=== PATIENT | male | born 1975 | race Caucasian/White ===

== ENCOUNTER 2024-06-13 22:23 | Emergency (ER) | payer OTHER, SELFPAY ==
[2024-06-13 22:25] VITALS: BP 152/107
[2024-06-14] VITALS: BP 123/74
--- NOTE | 2024-06-14 03:35 | ED.GENMED ---
History of Present Illness
General
Chief Complaint: Skin Problem
Source: patient
Exam Limitations: none
Time Seen by Provider: 06/14/24 00:53
Nursing documentation reviewed up to this point in time: agreed with
History of Present Illness
History of Present Illness:
48-year-old male with history as documented presents to the ER for evaluation of red spots on the legs. Patient reports that about 5 days ago he noticed a tender red bump on the right ankle/ferris. Since then he has also developed a similar bump on
the left anterior ferris. Areas are occasionally pruritic they are tender to the touch and slightly raised. He denies any trauma, denies any bug bite. Denies any new skin products or irritants. He denies any lesions on the rest of his body. He
has noticed some slight localized edema around the ankles as well which is new. He has not had any fevers or chills. He has not had any arthralgias or myalgias. He has not had any respiratory symptoms, GI symptoms. He denies similar symptoms in
the past.
Past History
Past History
ED Past Medical History: Asthma
Social History
Personal:
Review of Systems
Review of Systems
All Other Systems: ROS reviewed and negative except as documented in HPI and ROS
Constitutional: Denies fever or chills
Respiratory: Denies cough or trouble breathing
Cardiac: Denies chest pain
ABD/GI: Denies abdominal pain
: Denies flank pain
Musculoskeletal: Reports edema
Skin: Reports rash
Neurological: Denies dizzy or headache
Phy Exam
Physical Exam
Physical Exam:
General: Awake, alert, oriented x3; no acute distress
Head: Normocephalic, atraumatic
Eyes: Conjunctiva normal, sclera anicteric
Throat: Airway intact, handling secretions
Neck: Trachea midline, supple without meningismus
Lungs: Clear to auscultation bilaterally, no wheezing, rales, rhonchi
Heart: Regular rate and rhythm, no murmurs, gallops, or rubs
Neuro: No gross deficits
Skin: Patient has two circular red to purple raised nodules�one on the right lateral aspect of the lower ferris, one on the left midline anterior lower ferris; they are tender to the touch, no pustule or ulceration or erosion of the skin, no warmth, no
rim of induration or fluctuance/crepitus; no other lesions noted on skin examination
Extremities: Trace edema around the ankles bilaterally; extremities are warm and well-perfused
Scores
Heart Failure Risk
Heart Failure Risk Score: Not Applicable
Heart Score for Chest Pain Patients
STEMI patient?: Not applicable
Withdrawal Assessment of Alcohol
Withdrawal Assessment Completed?: Not applicable
Course
Orders/Labs/Results
Orders:
Orders
06/14/24 01:57
CR Chest - 2 Views Urgent
Comment:
Reason For Exam: erythema nodosum
06/14/24 02:00
Anti Streptolysin Urgent
CRP [C-Reactive Protein] Urgent
Complete Blood Count/With Diff Urgent
Comprehensive Metabolic Panel Urgent
ESR [Erythrocyte Sed Rate] Urgent
Monotest Urgent
Abnormal Lab Results
06/14/24
02:00
Chloride 108 H mmol/L
(98-107)
Glucose 110 H mg/dl
(70-99)
06/14/24 02:00
Vital Signs
Initial and Last Documented VS:
Initial Vital Signs
Temp Pulse Resp BP Pulse Ox
36.6 C 105 19 152/107 98
06/13/24 22:25 06/13/24 22:25 06/13/24 22:25 06/13/24 22:25 06/13/24 22:25
Last Documented Vital Signs
Temp Pulse Resp BP Pulse Ox
36.6 C 78 18 123/74 98
06/13/24 22:25 06/14/24 00:00 06/14/24 00:00 06/14/24 00:00 06/14/24 00:00
MDM/Problems Addressed
Differential Diagnosis Includes:
Cellulitis/folliculitis, erythema nodosum, irritant/contact dermatitis, hives/urticaria
MDM/Problems Addressed:
48-year-old male presents to the emergency room for evaluation of rash/red spots as described above. No systemic symptoms, he has two small well-circumscribed nodules one on each leg which are tender to the touch. No pustule to suggest
folliculitis, no ulceration of the skin. There is no central clearing to suggest erythema migrans and he has symptoms on each leg. Seems most consistent with erythema nodosum. Will check basic labs, chest x-ray, inflammatory markers. Reassess
after the above.
Chest x-ray reviewed by me no acute pathology. Labs reviewed and no clinically significant abnormalities�CBC and CMP, inflammatory markers unremarkable. Plan to trial NSAIDs, steroid and have patient follow-up with his primary physician. He feels
comfortable with this plan. All questions answered.
*Radiology
Radiology exam reviewed: preliminary read by ED provider
*Pulse Oximetry
Patient hypoxic: no
*Critical Care Note
Total Time (30-74mins, 75-104mins- exclusive of procedures): Not Applicable
Data Reviewed
Source: patient
ED Attending Note
-
Portions of this chart may have been created with voice recognition software.� Occasional wrong word or��sound alike� substitutions may have occurred due to the inherent limitations of voice recognition software.
Discharge Plan
Departure
Patient Disposition: Home (Routine Discharge)
Date of Disposition: 06/14/24
Time of Disposition: 03:44
Patient with high blood pressure during this ER visit?: Yes
Discharge Problem:
Erythema nodosum
Instructions: Erythema nodosum
Prescriptions:
New
prednisone 10 mg Tablet
See Rx Instructions .ROUTE .COMPLEX Qty: 30 0RF
Rx Instructions:
Take By Mouth:
40 mg daily x3 days, 30 mg daily x3 days,
20 mg daily x3 days, 10 mg daily x3 days.
ibuprofen 400 mg tablet
400 mg PO Q6H PRN (Reason: Pain) Qty: 30 0RF
No Action
sulfamethoxazole-trimethoprim 800 MG/160 MG tablet
1 tab PO BID Qty: 14 0RF
Referrals:
Jairo Mccormick MD [Family Provider] - Follow up in 2-3 days
Activity Restrictions/Additional Instructions:
Thank you for visiting the Emergency Department at [facility].
1. Please schedule a follow up appointment as directed. Call first thing tomorrow morning to make an appointment.
2. If indicated, please take your medications as instructed and indicated on discharge paperwork.
3. If any of your symptoms do not improve, or persist, or become more severe within 6-12 hours, please return to the emergency department for further care.
4. Please return to the emergency department if you develop a headache, neck pain/stiffness, fever greater than 100.4F, chest pain, shortness of breath, persistent nausea, vomiting, slurred speech, difficulty walking, numbness/tingling, weakness,
signs of infection or any other symptoms that are worrisome to you.
Please call [phone] if you have any questions.
Interventions
Interventions:
*Risk Screen - Suicide Last Done: 06/13/24 22:25
*General Assessment Last Done: 06/14/24 01:15
*Neglect/Abuse Screening Last Done: 06/13/24 22:25
*ED COVID-19 Vaccine History Last Done: 06/14/24 01:15
ED-Skin Assessment Last Done: 06/13/24 23:50
Discharge Date and Time
Print Language: URDU
--- NOTE | 2024-06-14 03:39 | DOWNTIME ---
There was a [facility] Client Adolescent Counselor Downtime on 06/14/2024 from 0200 to 06/14/2024 at 0325 . Downtime documentation of patient's care, including medication administrations, has been reconciled in the electronic record per guidelines. Refer to the
patient's paper chart under the miscellaneous tab to see printed paper medication records and downtime forms.
[2024-06-14 03:41] LABS: ALT (SGPT) 30 U/L (0-50); AST (SGOT) 26 U/L (17-59); Albumin 4.5 g/dl (3.5-5.0); Alkaline Phosphatase 62 U/L (38-126); Blood Urea Nitrogen 19 mg/dl (9-20); Calcium 9.4 mg/dl (8.4-10.2); Carbon Dioxide 22 mmol/L (22-30); Chloride 108 mmol/L (98-107); Glucose 110 mg/dl (70-99); Sodium 142 mmol/L (135-145); Total Bilirubin 0.8 mg/dl (0.2-1.3); Total Protein 7.4 g/dl (6.3-8.2); eGFR > 60.00
[2024-06-14 03:46] LABS: % Eosinophils 6.2 % (0-6); % Immature Granulocytes 0.2 % (0-0.5); % Lymphocytes 31.4 % (20.5-51.1); % Neutrophils 50.2 % (42.2-75.2); Absolute Basophils 0.1 10^3/uL (0-0.2); Absolute Eosinophils 0.4 10^3/uL (0-0.7); Absolute Monocytes 0.7 10^3/uL (0.1-0.6); Absolute Neutrophils 3.2 10^3/uL (1.4-6.5); Erythrocyte Sed Rate 12 mm/hour (0-20); Hematocrit 40.8 % (39.0-52.0); Hemoglobin 14.3 g/dL (13.0-18.0); Mean Corpuscular Hgb 29.9 pg (27.0-31.0); Mean Corpuscular Volume 85.2 fL (80.0-94.0); Mean Platelet Volume 8.3 fL (7.4-10.4); Nucleated Red Blood Cells % 0 % (-); Platelet Count 244 10^3/uL (130-400); Red Blood Cell Count 4.79 10^6/uL (4.70-6.10); Red Cell Dist. Width 12.6 % (11.5-14.5); White Blood Cell Count 6.3 10^3/uL (4.8-10.8)
[2024-06-14 03:58] VITALS: BP 121/68
[2024-06-14 04:10] LABS: Monotest Negative (Negative)
[2024-06-14 14:03] LABS: Anti Streptolysin Negative (Negative)
== END 2024-06-14 04:00 | disposition home or self-care (01) ==
LOC: EMR 22:23
PROVIDERS: EMERGENCY PHYSICIAN Emergency Medicine; FAMILY PHYSICIAN Internal Medicine
DX: L52 Erythema nodosum (principal); R22.32 Localized swelling, mass and lump, left upper limb; J45.909 Unspecified asthma, uncomplicated
CPT/HCPCS: 99283; 71046; 80053; 85025; 85652; 86063; 86140; 86308

== ENCOUNTER 2024-06-16 15:17 | Emergency (ER) | payer OTHER, SELFPAY ==
[2024-06-16 15:21] VITALS: BP 152/98
[2024-06-16 15:45] LABS: % Basophils 0.9 % (0-2); % Eosinophils 4.2 % (0-6); % Immature Granulocytes 0.2 % (0-0.5); % Lymphocytes 20.7 % (20.5-51.1); % Monocytes 8.6 % (1.7-9.3); % Neutrophils 65.4 % (42.2-75.2); Absolute Basophils 0.1 10^3/uL (0-0.2); Absolute Eosinophils 0.3 10^3/uL (0-0.7); Absolute Lymphocytes 1.4 10^3/uL (1.2-3.4); Absolute Monocytes 0.6 10^3/uL (0.1-0.6); Absolute Neutrophils 4.3 10^3/uL (1.4-6.5); Hematocrit 39.8 % (39.0-52.0); Hemoglobin 14.1 g/dL (13.0-18.0); Mean Corp Hgb Conc. 35.4 g/dL (33.0-37.0); Mean Corpuscular Hgb 29.6 pg (27.0-31.0); Mean Corpuscular Volume 83.6 fL (80.0-94.0); Mean Platelet Volume 8.3 fL (7.4-10.4); Nucleated Red Blood Cells % 0 % (-); Platelet Count 207 10^3/uL (130-400); Red Blood Cell Count 4.76 10^6/uL (4.70-6.10); Red Cell Dist. Width 12.3 % (11.5-14.5); White Blood Cell Count 6.6 10^3/uL (4.8-10.8)
[2024-06-16 16:00] LABS: ALT (SGPT) 28 U/L (0-50); AST (SGOT) 27 U/L (17-59); Albumin 4.4 g/dl (3.5-5.0); Alkaline Phosphatase 57 U/L (38-126); Blood Urea Nitrogen 17 mg/dl (9-20); Calcium 9.6 mg/dl (8.4-10.2); Carbon Dioxide 24 mmol/L (22-30); Chloride 106 mmol/L (98-107); Glucose 128 mg/dl (70-99); Potassium 4.1 mmol/L (3.5-5.1); Sodium 141 mmol/L (135-145); Total Bilirubin 0.7 mg/dl (0.2-1.3); Total Protein 7.3 g/dl (6.3-8.2); eGFR > 60.00
[2024-06-16 17:04] VITALS: BMI 31.5
[2024-06-16 17:07] VITALS: BP 127/76
--- NOTE | 2024-06-16 17:28 | ED.GENMED ---
History of Present Illness
<Leslie Sweeney PA-C - Last Filed: 06/16/24 21:12>
General
Chief Complaint: Skin Problem
Source: patient and records
Exam Limitations: none
Time Seen by Provider: 06/16/24 17:11
History of Present Illness
History of Present Illness:
48yoM with a history of asthma and seasonal allergies presenting for evaluation of a rash. He reports painful red spots on his bilateral lower legs which began about a week ago. He reports associated swelling in the lower legs. He denies any
injuries, insect bites, or exposure to similar rashes. He was seen in the ED 2 days ago for the same and had blood work completed. CRP was mildly elevated but ESR was normal. He was diagnosed with erythema nodosum and was prescribed prednisone.
Patient has not started the prednisone yet. He woke up today with a new area of rash on the volar aspect of the right wrist. This was initially itchy is not longer bothering him. This new rash is not tender. He reports chills but denies fevers.
No recent travel.
Past History
<Leslie Sweeney PA-C - Last Filed: 06/16/24 21:12>
Past History
ED Past Medical History: Asthma
Social History
Personal:
Phy Exam
<Leslie Sweeney PA-C - Last Filed: 06/16/24 21:12>
General Physical Exam
General Presentation: well appearing and no apparent distress
General age: appears stated age
General Skin: warm and dry
General Habitus: normal
General Mental: alert
ENT Exam
ENT Exam: normocephalic
Pulmonary Exam
Pulmonary Exam: no respiratory distress
Neurological Exam
Neurological Exam: alert
Harrison Coma Scale
Eye Opening: Spontaneous
Verbal Response: Oriented
Motor Response: Obeys Commands
GCS Total Score: 15
Skin Exam
Skin Exam: warm/dry and other (Erythematous tender nodules noted to bilateral lower legs with surrounding edema. No lymphangitis streaking. No fluctuance, drainage, or crepitus. Faint red macular rash noted to volar aspect of R wrist.)
Psychiatric Exam
Psychiatric Exam: normal mood/affect
Course
<Leslie Sweeney PA-C - Last Filed: 06/16/24 21:12>
Orders/Labs/Results
Orders:
Orders
06/16/24 15:34
Complete Blood Count/With Diff Urgent
Comprehensive Metabolic Panel Urgent
Abnormal Lab Results
06/16/24
15:34
Glucose 128 H mg/dl
(70-99)
06/16/24 15:34
06/16/24 15:34
Vital Signs
Initial and Last Documented VS:
Initial Vital Signs
Temp Pulse Resp BP Pulse Ox
98.6 F 107 18 152/98 98
06/16/24 15:21 06/16/24 15:21 06/16/24 15:21 06/16/24 15:21 06/16/24 15:21
Last Documented Vital Signs
Temp Pulse Resp BP Pulse Ox
98.6 F 122 27 127/76 97
06/16/24 15:21 06/16/24 17:45 06/16/24 17:45 06/16/24 17:07 06/16/24 17:15
<Robin Call DO - Last Filed: 06/16/24 18:32>
Orders/Labs/Results
Orders:
Orders
06/16/24 15:34
Complete Blood Count/With Diff Urgent
Comprehensive Metabolic Panel Urgent
Abnormal Lab Results
06/16/24
15:34
Glucose 128 H mg/dl
(70-99)
06/16/24 15:34
06/16/24 15:34
Vital Signs
Initial and Last Documented VS:
Initial Vital Signs
Temp Pulse Resp BP Pulse Ox
98.6 F 107 18 152/98 98
06/16/24 15:21 06/16/24 15:21 06/16/24 15:21 06/16/24 15:21 06/16/24 15:21
Last Documented Vital Signs
Temp Pulse Resp BP Pulse Ox
98.6 F 122 27 127/76 97
06/16/24 15:21 06/16/24 17:45 06/16/24 17:45 06/16/24 17:07 06/16/24 17:15
<Leslie Sweeney PA-C - Last Filed: 06/16/24 21:12>
MDM/Problems Addressed
Differential Diagnosis Includes:
48yoM here with a rash. C/o painful red spots on bilateral legs x 1 week. Seen in ED 2 days ago for the same and diagmonosed with erythema nodosum. Prescribed by prednisone but he never started this. Now with a new rash to the R wrist. +Chills, no
fevers. He is afebrile and non-toxic appearing. There are tender erythematous nodules present to the lower legs. There is a red macular rash to volar aspect of the R wrist which appears to be a different morphology. Differential diagnosis includes
but is not limited to: erythema nodosum, cellulitis, contact dermatitis
Labs obtained in triage unremarkable including normal white count. Patient encouraged to start taking the prednisone as previously prescribed. Patient concerned due to his chills. No convincing evidence of cellulitis given bilateral symptoms but
will cover with Keflex. He was advised to f/u with dermatology and ED return precautions discussed. Patient unhappy that he is not getting definitive answers and not receptive to care plan. Patient argumentative and requesting to speak with
attending. He was also evaluated by Dr. Call prior to discharge.
<Leslie Sweeney PA-C - Last Filed: 06/16/24 21:12>
*Critical Care Note
Total Time (30-74mins, 75-104mins- exclusive of procedures): Not Applicable
ED Attending Note
<FLACO Yip-Naseem - Last Filed: 06/16/24 21:12>
-
Portions of this chart may have been created with voice recognition software.� Occasional wrong word or��sound alike� substitutions may have occurred due to the inherent limitations of voice recognition software.
<Robin Call DO - Last Filed: 06/16/24 18:32>
ED Attending Note
Patient seen and examined by attending physician: Yes
I performed the substantive portion of visit, reviewed & personally made and approve the management plan that is documented in note by myself or PACHECO.: Yes
ED Attending Note:
Seen with PA, examined independently asked to reevaluate the patient, apparently he was frustrated by lack of definitive diagnosis seen few days ago by Dr Lizarraga-diagnosed erythema nodosum, given a prescription for prednisone which he did not take
yet, had some increased swelling of his lower extremities and area on his right wrist, said he feels feverish, PA had ordered some antibiotics also encouraged him to take his prednisone, definitive diagnosis is not entirely clear, I do think is
reasonable for him to start the steroids as prescribed antibiotics for superimposed cellulitis is not unreasonable as well I did my best to answer the patient's questions again he appeared annoyed almost angry due to lack of definitive diagnosis he
had full blood work last time he was here few days ago
Discharge Plan
Departure
Patient Disposition: Home (Routine Discharge)
Date of Disposition: 06/16/24
Time of Disposition: 17:48
Patient with high blood pressure during this ER visit?: Yes
Discharge Problem:
Rash and nonspecific skin eruption
Instructions: Skin Rash (DC)
Prescriptions:
New
cephalexin 500 mg capsule
500 mg PO Q6H 7 Days Qty: 28 0RF
No Action
sulfamethoxazole-trimethoprim 800 MG/160 MG tablet
1 tab PO BID Qty: 14 0RF
prednisone 10 mg Tablet
See Rx Instructions .ROUTE .COMPLEX Qty: 30 0RF
Rx Instructions:
Take By Mouth:
40 mg daily x3 days, 30 mg daily x3 days,
20 mg daily x3 days, 10 mg daily x3 days.
ibuprofen 400 mg tablet
400 mg PO Q6H PRN (Reason: Pain) Qty: 30 0RF
Referrals:
Moe Madrigal MD [Consulting Staff] -
Activity Restrictions/Additional Instructions:
Start taking prednisone as previously prescribed. Take Keflex (antibiotic) as prescribed.
Please call on Tuesday to schedule a follow-up with your family doctor and dermatology.
Return to the ER with any worsening symptoms or fevers.
Interventions
Interventions:
*Risk Screen - Suicide Last Done: 06/16/24 17:04
*General Assessment Last Done: 06/16/24 17:04
*Neglect/Abuse Screening Last Done: 06/16/24 17:04
ED- Fall Risk Assessment Last Done: 06/16/24 17:05
*ED COVID-19 Vaccine History Last Done: 06/16/24 17:04
*Nursing Disposition Last Done: 06/16/24 18:33
ED-Skin Assessment Last Done: 06/16/24 17:05
Discharge Date and Time
Discharge Date/Time: 06/16/24 18:42
Print Language: LATVIAN
== END 2024-06-16 18:42 | disposition home or self-care (01) ==
LOC: EMR 15:17
PROVIDERS: EMERGENCY PHYSICIAN Emergency Medicine; FAMILY PHYSICIAN Internal Medicine
DX: R21 Rash and other nonspecific skin eruption (principal); J45.909 Unspecified asthma, uncomplicated
CPT/HCPCS: 99283; 80053; 85025

== ENCOUNTER 2024-10-04 06:18 | Day surgery (SDC) | payer OTHER, SELFPAY | END 2024-10-04 11:10 | disposition home or self-care (01) | LOC: GI 06:18 | PROVIDERS: ATTENDING PHYSICIAN Internal Medicine Gastroenterology | DX: R19.4 Change in bowel habit (principal); K64.8 Other hemorrhoids; K29.70 Gastritis, unspecified, without bleeding; R11.2 Nausea with vomiting, unspecified; D12.3 Benign neoplasm of transverse colon; K29.50 Unspecified chronic gastritis without bleeding; K31.89 Other diseases of stomach and duodenum | CPT/HCPCS: 45380; 43239; 88305; 88342 ==

== ENCOUNTER → 2024-10-17 17:08 | Outpatient (REF) | payer OTHER, SELFPAY | LOC: RAD 17:08 | PROVIDERS: ATTENDING PHYSICIAN Internal Medicine Gastroenterology; FAMILY PHYSICIAN Internal Medicine | DX: R11.2 Nausea with vomiting, unspecified (principal) | CPT/HCPCS: 76700 ==

== ENCOUNTER 2025-03-28 20:55 | Inpatient (IN) | payer OTHER, SELFPAY ==
[2025-03-28 17:08] VITALS: BP 174/94
--- NOTE | 2025-03-28 17:47 | ED.GENMED ---
History of Present Illness
General
Chief Complaint: Abdominal Symptoms
Time Seen by Provider: 03/28/25 17:47
History of Present Illness
History of Present Illness:
Patient presents to the emergency department with abdominal pain that started this morning after waking up. Pain in epigastrium but radiates downward into his midabdomen. associated with vomiting. Hx of idiopathic pancreaitits. Also endorses
cramping to muscles in lower extremities. Denies etoh
Past History
Past History
ED Past Medical History: Asthma
Social History
Personal:
Phy Exam
Physical Exam
Physical Exam:
GENERAL APPEARANCE: NAD, well developed/ well nourished
EYES lids/conjunctiva normal
EARS/NOSE/THROAT Mucous membranes moist, uvula midline without oral pharyngeal erythema, exudate or swelling
HEAD/NECK normocephalic atraumatic, neck is supple.
RESPIRATORY respiratory effort normal, speaks in full sentences, no accessory muscle use. Lungs clear to auscultation without rhonchi, wheezes, rales
CARDIAC Regular rate and rhythm, no edema.
ABDOMINAL severe epigastric tenderness with diffuse abdominal tenderness and guarding. Abdomen soft
MUSCLES/EXTREMITIES No abnormal range of motion, no swelling.
SKIN Warm, pink and dry. No rashes
NEUROLOGICAL Speech is clear and appropriate. Normal level of consciousness. 5/5 strength in all extremities.
PSYCH Normal mood and affect. Judgement/competence is appropriate
Course
Orders/Labs/Results
Orders:
Orders
03/28/25 17:50
Complete Blood Count/With Diff Urgent
Comprehensive Metabolic Panel Urgent
Lipase Urgent
03/28/25 17:55
CT Abd/pelvis W Iv Cont Urgent
Comment:
Reason For Exam: diffuse abdominal tenderness
0.9% Sodium Chloride 1000 ml [Nss] 1,000 ml IV BOLUS
Morphine Sulfate 4 mg IV NOW STA
Ondansetron Injectable [Zofran] 4 mg IV NOW STA
03/28/25 18:25
HYDROmorphone [Dilaudid] 1 mg IV NOW STA
Abnormal Lab Results
03/28/25
17:50
WBC 13.0 H 10^3/uL
(4.8-10.8)
Absolute Neuts (auto) 11.1 H 10^3/uL
(1.4-6.5)
Absolute Lymphs (auto) 1.1 L 10^3/uL
(1.2-3.4)
Neutrophils % 85.8 H %
(42.2-75.2)
Lymphocytes % 8.1 L %
(20.5-51.1)
Chloride 108 H mmol/L
(98-107)
Carbon Dioxide 21 L mmol/L
(22-30)
Glucose 139 H mg/dl
(70-99)
Total Bilirubin 1.4 H mg/dl
(0.2-1.3)
Lipase > 4000 H* U/L
(23-300)
03/28/25 17:50
03/28/25 17:50
Vital Signs
Initial and Last Documented VS:
Initial Vital Signs
Temp Pulse Resp BP Pulse Ox
97.5 F 79 16 174/94 98
03/28/25 17:08 03/28/25 17:08 03/28/25 17:08 03/28/25 17:08 03/28/25 17:08
Last Documented Vital Signs
Temp Pulse Resp BP Pulse Ox
97.5 F 79 16 174/94 98
03/28/25 17:08 03/28/25 17:08 03/28/25 17:08 03/28/25 17:08 03/28/25 17:57
*Pulse Oximetry
SaO2: 98
Oxygen Mode of Delivery: Room air
Patient hypoxic: no
*Critical Care Note
Total Time (30-74mins, 75-104mins- exclusive of procedures): Not Applicable
ED Attending Note
ED Attending Note
ED Attending Note:
admitting for recurrent pancreatitis
1 day epigastric pain, nausea, vomiting
Lipase >4000
CT abd/pelvis consistent with pancreatitis, no fluid collection
Will admit for pain control, IVF
-
Portions of this chart may have been created with voice recognition software.� Occasional wrong word or��sound alike� substitutions may have occurred due to the inherent limitations of voice recognition software.
Discharge Plan
Departure
Patient Disposition: Admit
Date of Disposition: 03/28/25
Time of Disposition: 19:26
Presentation/result/management discussed w/ accepting MD/DO: Hospitalist
Discharge Problem:
Pancreatitis
Prescriptions:
No Action
sulfamethoxazole-trimethoprim 800 MG/160 MG tablet
1 tab PO BID Qty: 14 0RF
prednisone 10 mg Tablet
See Rx Instructions .ROUTE .COMPLEX Qty: 30 0RF
Rx Instructions:
Take By Mouth:
40 mg daily x3 days, 30 mg daily x3 days,
20 mg daily x3 days, 10 mg daily x3 days.
ibuprofen 400 mg tablet
400 mg PO Q6H PRN (Reason: Pain) Qty: 30 0RF
cephalexin 500 mg capsule
500 mg PO Q6H 7 Days Qty: 28 0RF
Referrals:
Moe Bates DO [Family Provider, Family Practice]
Interventions
Interventions:
*Risk Screen - Suicide Last Done: 03/28/25 17:08
*General Assessment Last Done: 03/28/25 17:55
*Neglect/Abuse Screening Last Done: 03/28/25 17:08
*ED COVID-19 Vaccine History Last Done: 03/28/25 17:55
BC-Csafgg-Dxbbbdbobm Assessment Last Done: 03/28/25 19:18
Discharge Date and Time
Print Language: CROATIAN
[2025-03-28 17:54] VITALS: BMI 32.6
[2025-03-28] MEDS: MORPHINE SULFATE 4 MG IV (17:58)
[2025-03-28] MEDS: ZOFRAN 4 MG IV ×2 (17:58→22:06)
[2025-03-28] MEDS: NSS 1000 IV ×3 (17:59→21:27)
[2025-03-28 18:04] LABS: Hematocrit 44.1 % (39.0-52.0); Hemoglobin 15.9 g/dL (13.0-18.0); Mean Corp Hgb Conc. 36.1 g/dL (33.0-37.0); Mean Corpuscular Volume 83.1 fL (80.0-94.0); Nucleated Red Blood Cells % 0 % (-); Platelet Count 189 10^3/uL (130-400); Red Cell Dist. Width 12.2 % (11.5-14.5)
[2025-03-28 18:22] LABS: ALT (SGPT) 34 U/L (0-50); AST (SGOT) 29 U/L (17-59); Albumin 4.9 g/dl (3.5-5.0); Alkaline Phosphatase 70 U/L (38-126); Blood Urea Nitrogen 11 mg/dl (9-20); Calcium 9.5 mg/dl (8.4-10.2); Carbon Dioxide 21 mmol/L (22-30); Chloride 108 mmol/L (98-107); Estimated Creatinine Clearance > 125 ml/min; Glucose 139 mg/dl (70-99); Potassium 3.7 mmol/L (3.5-5.1); Sodium 138 mmol/L (135-145); Total Protein 7.9 g/dl (6.3-8.2); eGFR > 60.00
[2025-03-28] MEDS: DILAUDID 1 MG IV ×2 (18:29→22:35)
[2025-03-28 19:16] LABS: Lipase > 4000 U/L (23-300)
--- NOTE | 2025-03-28 19:32 | W.PN.UPDATE ---
Update Note
Progress Note Update
This is an addendum to H&P written by PERIOPERATIVE ASSISTANT Izabel Soriano
I saw and examined the patient.
The PERIOPERATIVE ASSISTANT's note was reviewed and I agree with the note.
Comment:
Mr. 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
Triage VS: T 97.5, P 79, RR 16, BP 174/94, Spo2 98%
On exam patient is AAO x 3, appears in pain. CV: S1, S2, RRR; Chest: clear; Abdomen: mid-epigastric tenderness, no LE swelling.
LABS: WBC 13, Hg 15.9, PLT 189, Na 138, K+ 3.7, CO2 21, Cr 0.9, Glucose 139, T. Bili 1.4, AST 29, ALT 34, Alk Phos 70, Lipase > 4000
CT A/P
IMPRESSION:
Mild to moderate pancreatic/peripancreatic inflammatory changes suspicious for ACUTE PANCREATITIS with small volume fluid extending into the right anterior pararenal space.
No finding to suggest accompanying well-formed abnormal peripancreatic fluid collection.
No CT findings are seen to confirm gallbladder stones or suggest biliary tract dilatation.
Acute Pancreatitis
-hx idiopathic pancreatitis; no gallstones or biliary dilation on CT; CA WNL
-admit to med/surg
-add on TGL, IgG4
-s/p 1L NS, give additional bolus now, continue NS @ 125
-pain control, anti-emetics PRN
-GI consult
remainder of plan per PERIOPERATIVE ASSISTANT note
dVT PPx
--- NOTE | 2025-03-28 19:38 | HPS.HSE ---
Family Physician
-
Family Physician: Moe Bates
Chief Complaint
-
Upper abdominal pain left and right to mid epigastric
History of Present Illness
49-year-old male complaining of abdominal pain started this morning after waking up reports pain is in the epigastrium and radiates toward his mid abdomen associated with vomiting he has past medical history of idiopathic pancreatitis 17 years ago.
He denies alcohol use, fever, chills, chest pain, palpitations, cough, diarrhea, urinary symptoms. He has past medical history of asthma, idiopathic pancreatitis,, erythema nodosum bilateral legs with rash.
Medical History
Past Medical History
Past Medical History: Reports Other
Additional Past Medical History:
erythema nodosum bilateral legs with rash.
Seasonal allergies
Insomnia
Past Surgical History: Reports Other
Additional Past Surgical History:
Myringotomy tubes
Tonsillectomy
Vasectomy
Social History
Tobacco: Non-smoker
Alcohol: None
Drug: Marijuana (Edibles occasionally at night)
Personal:
Living: With Family
Employment: Employed (Physical therapist)
Family History
Family History: Adopted
Allergies / Home Medications
Allergies reflects when Allergies were last updated in [facility].
Home Medications with original date entered in [facility]
Allergy/Medication List:
Allergies
Allergy/AdvReac Type Severity Reaction Status Date / Time
No Known Allergies Allergy Verified 06/13/24 22:25
Home Medications
Medical Marijuana 1 gummy PO HSPRN PRN sleep 03/28/25
albuterol sulfate 90 mcg/actuation aerosol inhaler 2 puff inhalation R Q6HPRN PRN sob 03/28/25
budesonide-formoterol HFA 80 mcg-4.5 mcg/actuation aerosol inhaler (Symbicort) 2 inh inhalation R BID 03/28/25
fexofenadine 180 mg tablet 180 mg PO DAILY 03/28/25
fluticasone propionate 50 mcg/actuation nasal spray,suspension 1 spray intranasal DAILY 03/28/25
sodium chloride 0.65 % nasal spray aerosol 1 spray intranasal DAILY 03/28/25
therapeutic multivitamin 1 tab PO DAILY 03/28/25
Review of Systems
-
History Source: Patient and Family ( at bedside)
A 12 point ROS was completed and negative except as noted: Yes
Constitutional: Reports Chills (With pain and vomiting); Denies Fever
EENT: Denies Sore Throat
Respiratory: Denies Cough or Trouble Breathing
Cardiac: Denies Chest Pain, Diaphoresis, Palpitations or Syncope
Abdomen/GI: Reports Abdominal Pain (Across upper abdomen and mid epigastrium), Nausea and Vomiting; Denies Diarrhea or Constipated
: Denies Dysuria, Frequency or Flank Pain
Musculoskeletal: Reports Other (Chronic scaly rash right and left lower extremity of unclear etiology); Denies Joint Pain or Joint Swelling
Skin: Reports Rash (Chronic scaly rash right and left lower extremity of unclear etiology); Denies Itching
Neurological: Denies Dizzy or Headache
Endocrine: Reports No Symptoms
Hematologic/Lymphatic: Reports No Symptoms
Psych: Reports Calm
Physical Exam
Vital Signs
Vital Signs
Temp Pulse Resp BP Pulse Ox
97.5 F 79 16 174/94 98
03/28/25 17:08 03/28/25 17:08 03/28/25 17:08 03/28/25 17:08 03/28/25 17:57
Physical Exam
General: Pain and Chills; No Fever
HEENT: NormoCephalic, Anicteric, Moist mucous membranes, PERRLA, Hoople Conjunctivae and No Ptosis
Respiratory: Clear; No Wheezes, Rales or Rhonchi
Cardiac: S1/S2 and Regular Rhythm
Breast: Deferred by me
GI: Soft, Normal Bowel Sounds and Tender (Entire upper abdomen and midepigastric)
Genito-urinary: Deferred by me
Musculoskeletal: No Clubbing, No Cyanosis and No Edema
Skin: Warm, Dry and Rash (Chronic scaly rash right and left lower extremity of unclear etiology)
Neuro: AO x 3, Nonfocal/grossly intact, Cranial Nerves Intact and No Sensory Deficits; No Slurred Speech, Facial Droop, Tremors or Sedated
Psych: Calm
Laboratory Results
-
03/28/25 17:50
03/28/25 17:50
Laboratory Results
Total Bilirubin 1.4 mg/dl (0.2-1.3) H 03/28/25 17:50
AST 29 U/L (17-59) 03/28/25 17:50
ALT 34 U/L (0-50) 03/28/25 17:50
Alkaline Phosphatase 70 U/L (38-126) 03/28/25 17:50
Lipase > 4000 U/L (23-300) H* 03/28/25 17:50
Impression/Plan
-
Impression/plan:
Admit to MedSurg
#Acute pancreatitis
WBC 13, 97.5 F, HR 79, 174/94
Lipase > 4000
- IV 2 L then IV NSS 125 cc an hour
- Consult GI
- IV PPI
- IV Dilaudid
Follow CBC, CMP
CT abdomen pelvis:
1. Mild to moderate pancreatic/peripancreatic inflammatory changes suspicious for ACUTE PANCREATITIS with small volume fluid extending into the right anterior pararenal space.
2. No finding to suggest accompanying well-formed abnormal peripancreatic fluid collection.
EGD 10/04/2024: Mild gastritis normal esophagus
Colonoscopy 10/04/2024 9 neoplasm transverse colon
#Leg cramps
-Check mag level
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
Patient reports occasionally gets swelling
Has had follow-up with Derm for biopsy and full lab work with rheumatology with no full answers other than possible venous insufficiency
#Seasonal allergies
Continue Symbicort, Lita, Flonase, albuterol as needed
#Insomnia
Patient uses occasional edible marijuana
DVT prophylaxis
SCDs
Full code
[2025-03-28 20:25] LABS: Triglycerides 103 mg/dl (10-149)
[2025-03-28] MEDS: DILAUDID 0.5 MG IV (20:42)
[2025-03-28 21:18] LABS: Magnesium 1.8 mg/dl (1.6-2.3)
[2025-03-28 21:26] VITALS: BP 150/80; BMI 32.1
[2025-03-28] MEDS: COMPAZINE 5 MG IV (22:54)
[2025-03-28 23:30] VITALS: BP 158/86
[2025-03-29] MEDS: BENADRYL 25 MG IV (01:39)
[2025-03-29] MEDS: TORADOL 15 MG IV (01:39)
[2025-03-29] MEDS: NSS 1000 IV ×4 (05:39→19:30)
[2025-03-29 06:35] LABS: Hematocrit 43.6 % (39.0-52.0); Hemoglobin 15.7 g/dL (13.0-18.0); Mean Corp Hgb Conc. 36.0 g/dL (33.0-37.0); Mean Corpuscular Volume 84.8 fL (80.0-94.0); Nucleated Red Blood Cells % 0 % (-); Platelet Count 179 10^3/uL (130-400); Red Cell Dist. Width 12.2 % (11.5-14.5)
[2025-03-29 07:00] VITALS: BP 164/86
[2025-03-29 07:04] LABS: ALT (SGPT) 29 U/L (0-50); AST (SGOT) 23 U/L (17-59); Albumin 4.2 g/dl (3.5-5.0); Alkaline Phosphatase 58 U/L (38-126); Blood Urea Nitrogen 9 mg/dl (9-20); Calcium 8.8 mg/dl (8.4-10.2); Carbon Dioxide 22 mmol/L (22-30); Chloride 108 mmol/L (98-107); Estimated Creatinine Clearance > 125 ml/min; Glucose 140 mg/dl (70-99); Potassium 3.9 mmol/L (3.5-5.1); Sodium 138 mmol/L (135-145); Total Protein 7.0 g/dl (6.3-8.2); eGFR > 60.00
[2025-03-29] MEDS: ZOFRAN 4 MG IV ×3 (07:24→22:12)
[2025-03-29] MEDS: DILAUDID 1 MG IV ×2 (07:24→11:54)
[2025-03-29] MEDS: NSS (PRESERVATIVE FREE) 10 ML IV (07:25)
[2025-03-29] MEDS: PROTONIX IV 40 MG IV (07:25)
--- NOTE | 2025-03-29 07:30 | CON.GI ---
Addendum entered and electronically signed by Alana Fernandes MD 03/29/25 11:30:
I saw and examined the patient.
The MANAGER HEAVY DUTY's note was reviewed and I agree with the note.
Comment: This is a 49-year-old male with past medical history as listed below including remote history of pancreatitis at the age of 32 when he was admitted to [facility] at that time. He was having alcohol at that time but he says his last drink
then was about 5 days prior to that admission. He says he has completely quit drinking though for the past 5 to 6 years. He now presents with symptoms of abdominal pain with nausea and 2 episodes of vomiting yesterday. He was also having
diaphoresis, no fevers or chills. He says that the pain is mostly in the upper abdomen and with minimal radiation to the left side of abdomen. On admission he was noted to have elevated lipase level and CT abdomen consistent with acute
pancreatitis no fluid collection noted. LFTs are unremarkable except for elevated indirect bilirubin. He also had a colonoscopy and endoscopy 10/[address] Lerner. Findings are as listed below. His daughter has a history of celiac he was ruled
out for celiac a few times in the past. His last bowel movement was yesterday which he says was normal. He is passing flatus.
Assessment and plan second episode acute pancreatitis last episode was almost 17 years ago at that time he was drinking alcohol (but denies excessive use of alcohol ) but he has not had any alcohol for the past 5 to 6 years. His triglycerides level
on admission was normal. His ultrasound in October did not reveal any evidence of gallstones or ductal dilatation. His CT also from yesterday did not reveal any evidence of obvious stones or ductal dilatation. Will get an MRI with MRCP and his IgG4
level is currently pending. Continue supportive care with IV fluids, Zofran as needed, pain control but try to minimize use of narcotics as able. Use incentive spirometry and encouraged ambulation. okay to start clear liquids if pain is
improving. Follow-up with Dr. Lerner after DC
Original Note:
Consultation
-
Date/Time Consultation Requested: 03/28/25 0716
Date/Time Consultation Performed: 03/29/25 9570
Requesting Provider: CONCETTA Lockhart
Performing Provider: Dr. Fernandes/CONCETTA Mccord
Reason for Consultation: pancreatitis
Medical History
Chief Complaint / HPI
Chief Complaint: abd pain
History of Present Illness:
49 year old male with PMH of asthma, Chronic sinusitis, perirectal abscess (2016), prior episode of pancreatitis at the age of 32 (17 years ago)presents to the emergency room with abdominal pain. We are asked to evaluate for pancreatitis. The
patient states that he has a history of pancreatitis that was diagnosed 17 years ago treated at [facility]. At that time he states that he had 'no gallstones, a full workup, prior to that he did have alcoholic beverages approximately 5 days
prior to that'. He states he was told that it was 'idiopathic'. 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
to his abdomen, sharp, severe that started to radiate across his abdomen and started to go down more towards the left. It was associated with nausea and vomiting. After progression and an increase in intensity he proceeded to the emergency room
for further evaluation. The patient states that he has not had any alcohol in 5 years for 'personal reasons as he would drink 2 sixpacks on the weekends'. His current medications were reviewed which include albuterol, Symbicort, Lita and
Flonase. He does use medical marijuana gummy to sleep at night. He is adopted so he does not know his family history. He states his pain is slightly improved from yesterday but still significant. He is able to get up and walk around. He denies
any fevers, chills, melena, hematochezia, dysphagia or odynophagia. No acholic stools or bilirubinuria. He is up and urinating. He is afebrile, Presented with WBC of 13.0 this is down to 11.3, hemoglobin is 15.7 down from 15.9, platelets 179,
sodium 138, potassium 3.9, BUN 9, creatinine 0.7, glucose 140, total bilirubin 1.4, direct bilirubin 0.3, AST 23, ALT 29, alk phos 59, albumin 4.2, triglycerides 103, lipase greater than 4000, IgG4 pending.
Past Medical History
Past Medical History: Asthma and Other (pancreatitis, chronic sinusitis, perirectal abscess, Hx positive PPD (neg CXR, no hx of Tx))
Past Surgical History: Tonsilectomy, Urological (vasectomy) and Other (b/l myringotomy, perirectal abscess I&D (2016), skin lesion biopsy)
Social History
Tobacco: Other (cigar)
Alcohol: Other (stopped ETOH)
Drug: Marijuana (medical marijuana)
Personal:
Living: With Family
Employment: Employed
Family History
Family History: Adopted
Allergies / Home Medications
Allergy/AdvReac Type Severity Reaction Status Date / Time
No Known Allergies Allergy Verified 06/13/24 22:25
�Medication �Instructions �Recorded
Medical Marijuana 1 gummy PO HSPRN PRN sleep 03/28/25
albuterol sulfate 90 mcg/actuation 2 puff inhalation R Q6HPRN PRN sob 03/28/25
aerosol inhaler
budesonide-formoterol HFA 80 2 inh inhalation R BID 03/28/25
mcg-4.5 mcg/actuation aerosol Lung/Breathing Issues
inhaler (Symbicort)
fexofenadine 180 mg tablet 180 mg PO DAILY Allergies 03/28/25
fluticasone propionate 50 1 spray intranasal DAILY Allergies 03/28/25
mcg/actuation nasal
spray,suspension
sodium chloride 0.65 % nasal spray 1 spray intranasal DAILY Allergies 03/28/25
aerosol
therapeutic multivitamin 1 tab PO DAILY Supplement 03/28/25
Review of Systems
-
All other systems: A 12 pt ROS was Negative except as stated above in HPI
Vital Signs
Temp Pulse Resp BP Pulse Ox
97.9 F 72 18 158/86 98
03/28/25 23:30 03/28/25 23:30 03/28/25 23:30 03/28/25 23:30 03/28/25 23:30
Physical Exam
Exam
General: Well Nourished, No Apparent Distress and Other (Patient unremarkable to sit up and move around appropriately without any difficulty)
HEENT: Normocephalic and Anicteric
Respiratory: Clear
Cardiac: Regular Rhythm
GI: Soft, Non Distended, Normal Bowel Sounds and Tender (To even superficial palpation diffusely, more so in upper abdomen)
Musculoskeletal: No Edema
Skin: Warm and Dry
Neuro: AO x 3
Psych: Calm
Results
WBC 11.3 10^3/uL (4.8-10.8) H 03/29/25 05:51
Hgb 15.7 g/dL (13.0-18.0) 03/29/25 05:51
Hct 43.6 % (39.0-52.0) 03/29/25 05:51
MCV 84.8 fL (80.0-94.0) 03/29/25 05:51
Plt Count 179 10^3/uL (130-400) 03/29/25 05:51
Absolute Neuts (auto) 9.6 10^3/uL (1.4-6.5) H 03/29/25 05:51
Sodium 138 mmol/L (135-145) 03/29/25 05:51
Potassium 3.9 mmol/L (3.5-5.1) 03/29/25 05:51
Chloride 108 mmol/L (98-107) H 03/29/25 05:51
Carbon Dioxide 22 mmol/L (22-30) 03/29/25 05:51
BUN 9 mg/dl (9-20) 03/29/25 05:51
Creatinine 0.7 mg/dL (0.7-1.3) 03/29/25 05:51
Calcium 8.8 mg/dl (8.4-10.2) 03/29/25 05:51
Total Bilirubin 1.4 mg/dl (0.2-1.3) H 03/29/25 05:51
AST 23 U/L (17-59) 03/29/25 05:51
ALT 29 U/L (0-50) 03/29/25 05:51
Alkaline Phosphatase 58 U/L (38-126) 03/29/25 05:51
Lipase > 4000 U/L (23-300) H* 03/28/25 17:50
Diagnostic Image Results:
CT Abd/Pelvis with oral and IV contrast 03/28/25: ABDOMEN:There are nrki-ax-ehygevto pancreatic/peripancreatic inflammatory changes without gross abnormal accompanying peripancreatic fluid collection. Small volume fluid is seen in the right anterior
pararenal space and sj-duodenum. No CT findings are seen to confirm gallbladder stones or suggest biliary tract dilatation. There is no focal intrinsic abnormality of the liver, spleen, adrenal glands or kidneys with symmetric renal excretion. The
abdominal aorta is normal in caliber. There is no retroperitoneal lymphadenopathy. Evaluation of the intestinal tract is limited without oral contrast, without intestinal obstruction or free air. PELVIS:No focal abnormality of the urinary bladder is
seen. There is no true pelvis free fluid or significant lymphadenopathy. SKELETON:Lucent lesion with sclerotic border in the posterior left iliac bone is stable in size and appearance, likely benign.
US Abd 10/17/24: The liver is top normal in size and the spleen is mildly enlarged. The study is otherwise unremarkable
Prior GI Procedures:
EGD: 10/04/24 ([facility]) - Normal esophagus. Biopsied. Neg
- Mild Gastritis. Biopsied. negg H Pylori
- Normal examined duodenum. Biopsied. Neg Celiac
Colonoscopy: 10/04/24 ([facility]) - The examined portion of the ileum was normal.
- Normal mucosa in the rectum, in the sigmoid colon,
in the descending colon, in the transverse colon, in
the ascending colon and in the cecum. Biopsied.
- One 2 mm polyp in the transverse colon, removed with
a jumbo cold forceps. Resected and retrieved.
- Internal hemorrhoids.
Path: TA (neg dysplasia), random colon bx all negative.
-Repeat colo 5 years.
Assessment / Plan
-
49 year old male with PMH of asthma, Chronic sinusitis, perirectal abscess (2016), prior episode of pancreatitis at the age of 32 (17 years ago)presents to the emergency room with abdominal pain. We are asked to evaluate for pancreatitis. Patient
with serological, CT findings and abdominal pain consistent with acute pancreatitis. Patient without gallstones, denies alcohol use for 5 years, normal triglyceride levels, no offending medications. Currently on IV fluids normal saline at 175 cc
an hour.
Impression:
Pancreatitis, second episode
Plan:
-Continue IV fluids, currently normal saline at 175 cc an hour. May need to increase IVF as not much hemodilution seen on labs this am. (Hgb currently 15.7, down from 15.9 after 12 hrs).
-Will repeat CBC in afternoon, if not decreasing further will increase or give bolus.
-Incentive Spirometer added
-NPO except meds, discussed when pain starts to decrease will start clear liquid.
-Analagesia currently Dilaudid 1 mg q 3 hrs
-Zofran prn
-Await IgG4 subclasses
-Continue Pantoprazole 40 mg IV daily
-CBC, BMP, LFTs, CRP and lipase in a.m.
-Discussed the importance of incentive spirometer, increasing pain medication when able with patient
- Further recommendations to be forthcoming
-
-
Thank you for consultation and allowing me to participate in the patient's care. Please call the aeronautical engineer GI physician during the after hours with any questions or concerns.
[2025-03-29] MEDS: SYMBICORT 80/4.5 MCG INHALER 2 PUFF INH (07:45)
[2025-03-29] MEDS: DILAUDID 0.5 MG IV ×2 (10:29→14:18)
[2025-03-29 12:04] LABS: Hematocrit 42.7 % (39.0-52.0); Hemoglobin 15.1 g/dL (13.0-18.0); Mean Corp Hgb Conc. 35.4 g/dL (33.0-37.0); Mean Corpuscular Volume 83.7 fL (80.0-94.0); Platelet Count 186 10^3/uL (130-400); Red Cell Dist. Width 12.2 % (11.5-14.5)
--- NOTE | 2025-03-29 14:40 | W.PN.HOSP.TC ---
Today's Communication/Plan
-
See plan
Assessment / Plan
Assessment / Plan
Impression/plan
Acute recurrent pancreatitis. Second episode
Denies alcohol use.
Normal triglycerides.
Mildly elevated bilirubin at 1.4 with normal transaminases.
Imaging including CT scan of the abdomen pelvis with no evidence of cholelithiasis or choledocholithiasis.
IgG4 pending.
MRI pending.
Continue aggressive fluid support with isotonic solution.
Monitor hematocrit and CRP.
Monitor volume status closely.
Bowel rest.
PPI.
Given severe pain, will increase hydromorphone to 2 mg every 3 hours as needed
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
Patient reports occasionally gets swelling
Has had follow-up with Derm for biopsy and full lab work with rheumatology with no full answers other than possible venous insufficiency
#Seasonal allergies
Continue Symbicort, Lita, Flonase, albuterol as needed
#Insomnia
Patient uses occasional edible marijuana
DVT prophylaxis
SCDs
Full code
Anticipated Discharge: > 48 hours
Subjective/Interval History
-
Date of Service: March 29, 2025
Objective Data
-
Labs:
Laboratory Results
03/29/25 03/29/25
05:51 11:41
WBC 11.3 H 12.2 H
Hgb 15.7 15.1
Hct 43.6 42.7
Plt Count 179 186
Sodium 138
Potassium 3.9
Chloride 108 H
Carbon Dioxide 22
BUN 9
Creatinine 0.7
Glucose 140 H
Calcium 8.8
Total Bilirubin 1.4 H
AST 23
ALT 29
Alkaline Phosphatase 58
Vital Signs:
Vital Signs
Temp Pulse Resp BP Pulse Ox
98 F 65 18 164/86 97
03/29/25 07:00 03/29/25 07:51 03/29/25 07:51 03/29/25 07:00 03/29/25 07:51
I&O
03/28/25 03/29/25 03/30/25
06:59 06:59 06:59
Intake Total 1750 / 1750
Balance 1750 / 1750
Physical Exam
-
General: Well Developed and No Apparent Distress
HEENT: Normocephalic, Atraumatic and Moist Mucous Membranes
Respiratory: Clear to Auscultation
Cardiac: Regular Rhythm and S1/S2; Negative Murmur, Rub or Gallop
GI: Soft, Nontender, Nondistended and Normal Bowel Sounds; Negative Organomegaly
Rectal: Deferred by Provider
Musculoskeletal: No Clubbing, No Cyanosis and No Edema
Skin: Negative Rash
Neuro: Nonfocal/Grossly Intact
[2025-03-29 15:00] VITALS: BP 150/77
--- NOTE | 2025-03-29 15:07 | CM ---
Alert awake oriented patient who lives with Yolis in a 2 story home with 2 steps to enter and 16 steps to bath/bedroom .Pt is independent in driving and all ADLs.No adaptive devices.Offered Vn he declined need.
No VN/SNF hx.
Pharmacy [facility] [id number] Rangel
PLAN Home no needs
[2025-03-29] MEDS: DILAUDID 2 MG IV ×3 (16:16→22:35)
[2025-03-29] MEDS: COMPAZINE 5 MG IV (17:41)
[2025-03-29] MEDS: SYMBICORT 80/4.5 MCG INHALER INH (19:50)
[2025-03-29 23:22] VITALS: BP 127/68
[2025-03-30] MEDS: COMPAZINE 5 MG IV ×3 (03:10→18:37)
[2025-03-30] MEDS: DILAUDID 2 MG IV ×5 (03:10→21:05)
[2025-03-30] MEDS: NSS 1000 IV ×2 (03:10→08:19)
[2025-03-30 07:15] VITALS: BP 132/67
[2025-03-30] MEDS: SYMBICORT 80/4.5 MCG INHALER 2 PUFF INH (07:27)
[2025-03-30 08:12] LABS: Hematocrit 38.7 % (39.0-52.0); Hemoglobin 13.8 g/dL (13.0-18.0); Mean Corp Hgb Conc. 35.7 g/dL (33.0-37.0); Mean Corpuscular Volume 84.5 fL (80.0-94.0); Nucleated Red Blood Cells % 0 % (-); Platelet Count 157 10^3/uL (130-400); Red Cell Dist. Width 12.4 % (11.5-14.5)
[2025-03-30] MEDS: ZOFRAN 4 MG IV ×3 (08:21→21:06)
[2025-03-30] MEDS: NSS (PRESERVATIVE FREE) 10 ML IV (08:21)
[2025-03-30] MEDS: PROTONIX IV 40 MG IV (08:22)
[2025-03-30 08:46] LABS: ALT (SGPT) 22 U/L (0-50); AST (SGOT) 19 U/L (17-59); Albumin 3.7 g/dl (3.5-5.0); Alkaline Phosphatase 54 U/L (38-126); Blood Urea Nitrogen 9 mg/dl (9-20); Calcium 8.6 mg/dl (8.4-10.2); Carbon Dioxide 24 mmol/L (22-30); Chloride 109 mmol/L (98-107); Estimated Creatinine Clearance > 125 ml/min; Glucose 111 mg/dl (70-99); Lipase 615 U/L (23-300); Potassium 3.9 mmol/L (3.5-5.1); Sodium 138 mmol/L (135-145); Total Protein 6.3 g/dl (6.3-8.2); eGFR > 60.00
[2025-03-30 08:50] LABS: C-Reactive Protein 63.30 mg/L (0.0-10.00)
--- NOTE | 2025-03-30 08:57 | W.PN.HOSP.TC ---
Addendum entered and electronically signed by Elijah Hammond MD 03/30/25 12:38:
Acute pancreatitis with unknown etiology
Triglycerides normal. No alcohol use history in the last 5 to 6 years
Pending IgG4
IV fluids at 200 cc/h lactated Ringer's to reduce bacterial translocation
Continue antiemetics
Continue analgesics
Incentive spirometer and encourage ambulation
MRI/MRCP pending
GI following
Original Note:
Today's Communication/Plan
-
Plan reviewed with attending
MRCP
Trial clears
LR 200ml/hr
Assessment / Plan
Assessment / Plan
Impression/plan
49yoM PMH idiopathic pancreatitis many years ago presenting with acute pancreatitis of unknown cause.
AFVSS. Triglycerides WNL, no stones found, no hx recent alcohol use. Pending MRCP. GI Following.
Acute recurrent pancreatitis. Second episode
Denies alcohol use.
Normal triglycerides.
Mildly elevated bilirubin at 1.4 with normal transaminases.
Imaging including CT scan of the abdomen pelvis with no evidence of cholelithiasis or choledocholithiasis.
IgG4 pending.
MRI pending.
Continue aggressive fluid support with isotonic solution.
Monitor hematocrit and CRP.
Monitor volume status closely.
trial clears
PPI.
Given severe pain, will increase hydromorphone to 2 mg every 3 hours as needed
transition to LR IVF
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
Patient reports occasionally gets swelling
Has had follow-up with Derm for biopsy and full lab work with rheumatology with no full answers other than possible venous insufficiency
#Seasonal allergies
Continue Symbicort, Lita, Flonase, albuterol as needed
#Insomnia
Patient uses occasional edible marijuana
DVT prophylaxis
SCDs
Diet trial clears
Full code
Anticipated Discharge: 24 - 48 hours
Subjective/Interval History
-
Date of Service: March 30, 2025
Pt reports continued abdominal pain. He had one episode of emesis last night. He reports slightly improved pain but continued 6-7/10 ache with worsening up to /10. He reports chills with the worsened pain but denies objective fevers.
Objective Data
-
Labs:
Laboratory Results
03/30/25
07:30
WBC 12.1 H
Hgb 13.8
Hct 38.7 L
Plt Count 157
Sodium 138
Potassium 3.9
Chloride 109 H
Carbon Dioxide 24
BUN 9
Creatinine 0.7
Glucose 111 H
Calcium 8.6
Total Bilirubin 1.6 H
AST 19
ALT 22
Alkaline Phosphatase 54
Vital Signs:
Vital Signs
Temp Pulse Resp BP Pulse Ox
98.0 F 64 18 127/68 95
03/29/25 23:22 03/29/25 23:22 03/29/25 23:22 03/29/25 23:22 03/29/25 23:22
I&O
03/29/25 03/30/25 03/31/25
06:59 06:59 06:59
Intake Total 1750 / 1750 4200 / 4200
Output Total 1440 / 1440
Balance 1750 / 1750 2760 / 2760
Physical Exam
-
General: Well Developed, Well Nourished, No Apparent Distress and Pain; Negative Comfortable
HEENT: Normocephalic, Atraumatic and Moist Mucous Membranes
Respiratory: Clear to Auscultation and Non Labored Respirations
Cardiac: Regular Rhythm and S1/S2
GI: Soft and Tender (diffusely tender)
Musculoskeletal: No Clubbing and No Edema
Skin: Warm and Dry
Neuro: AO x 3, No Motor Deficits and Nonfocal/Grossly Intact
Psych: Calm
[2025-03-30] MEDS: LR 1000 IV ×3 (10:20→23:16)
--- NOTE | 2025-03-30 11:33 | W.PN.GI.CBS2 ---
Today's Communication / Plan
-
MRI with MRCP
Assessment / Plan
-
49 year old male with PMH of asthma, Chronic sinusitis, perirectal abscess (2015), prior episode of pancreatitis at the age of 32 (17 years ago)presents to the emergency room with abdominal pain. We are asked to evaluate for pancreatitis. Patient
with serological, CT findings and abdominal pain consistent with acute pancreatitis. Patient without gallstones, denies alcohol use for 5 years, normal triglyceride levels, no offending medications. Currently on IV fluids normal saline at 175 cc
an hour.
Assessment and plan
-second episode acute pancreatitis last episode was almost 17 years ago at that time he was drinking alcohol (but denies excessive use of alcohol ) but he has not had any alcohol for the past 5 to 6 years.
-His triglycerides level on admission was normal.
-ultrasound in October did not reveal any evidence of gallstones or ductal dilatation. CT also did not reveal any evidence of obvious stones or ductal dilatation. Will get an MRI with MRCP
-IgG4 level is currenty pending.
-Continue supportive care with IV fluids, Zofran as needed, pain control but try to minimize use of narcotics as able.
-incentive spirometry and encouraged ambulation.
-On clear liquids if pain is improving advance to LFD
-Follow-up with Dr. Lerner after DC
Subjective
Subjective
Date of Service: March 30, 2025
Abdominal pain seems to be improved slowly. He is passing flatus. He is also ambulating. MRI scheduled for today, lipase is trending down, he is afebrile, LFTs are normal other than mildly elevated indirect bilirubin
Objective
Data Reviewed
Laboratory Data:
Laboratory Results
03/30/25 07:30
03/30/25 07:30
Laboratory Results
Magnesium 1.8 mg/dl (1.6-2.3) 03/28/25 17:50
Total Bilirubin 1.6 mg/dl (0.2-1.3) H 03/30/25 07:30
AST 19 U/L (17-59) 03/30/25 07:30
ALT 22 U/L (0-50) 03/30/25 07:30
Alkaline Phosphatase 54 U/L (38-126) 03/30/25 07:30
Lipase 615 U/L (23-300) H 03/30/25 07:30
Vital Signs and I&O:
Vital Signs
Temp Pulse Resp BP Pulse Ox
98.8 F 87 16 132/67 98
03/30/25 07:15 03/30/25 07:42 03/30/25 07:42 03/30/25 07:15 03/30/25 07:42
I&O
03/29/25 03/30/25 03/31/25
06:59 06:59 06:59
Intake Total 1750 / 1750 4200 / 4200
Output Total 1440 / 1440
Balance 1750 / 1750 2760 / 2760
Physical Exam
Physical Exam
Cardiology: Normal Sinus Rhythm
Pulmonary: Clear
GI: Soft, Non Distended, Tender (Even with superficial palpation he has mild diffuse tenderness) and Normal Bowel Sounds
[2025-03-30 15:01] VITALS: BP 124/66
[2025-03-30] MEDS: SYMBICORT 80/4.5 MCG INHALER INH (20:17)
[2025-03-30 23:45] VITALS: BP 146/67
[2025-03-31] MEDS: DILAUDID 2 MG IV ×3 (01:04→11:18)
[2025-03-31] MEDS: COMPAZINE 5 MG IV ×2 (01:05→09:29)
[2025-03-31] MEDS: LR 1000 IV ×4 (04:00→23:16)
[2025-03-31] MEDS: ZOFRAN 4 MG IV ×2 (06:26→12:40)
[2025-03-31 07:15] VITALS: BP 143/75
[2025-03-31 07:42] LABS: Hematocrit 36.6 % (39.0-52.0); Hemoglobin 12.9 g/dL (13.0-18.0); Mean Corp Hgb Conc. 35.2 g/dL (33.0-37.0); Mean Corpuscular Volume 84.5 fL (80.0-94.0); Platelet Count 145 10^3/uL (130-400); Red Cell Dist. Width 12.1 % (11.5-14.5)
[2025-03-31] MEDS: SYMBICORT 80/4.5 MCG INHALER 2 PUFF INH (08:01)
[2025-03-31 08:05] LABS: ALT (SGPT) 21 U/L (0-50); AST (SGOT) 20 U/L (17-59); Albumin 3.6 g/dl (3.5-5.0); Alkaline Phosphatase 48 U/L (38-126); Blood Urea Nitrogen 9 mg/dl (9-20); Calcium 8.9 mg/dl (8.4-10.2); Carbon Dioxide 28 mmol/L (22-30); Chloride 106 mmol/L (98-107); Estimated Creatinine Clearance > 125 ml/min; Glucose 123 mg/dl (70-99); Potassium 3.9 mmol/L (3.5-5.1); Sodium 137 mmol/L (135-145); Total Protein 6.4 g/dl (6.3-8.2); eGFR > 60.00
[2025-03-31] MEDS: PROTONIX IV 40 MG IV ×2 (08:17→20:05)
[2025-03-31] MEDS: NSS (PRESERVATIVE FREE) 10 ML IV ×2 (08:18→20:05)
--- NOTE | 2025-03-31 10:22 | W.PN.HOSP.TC ---
Addendum entered and electronically signed by Elijah Hammond MD 03/31/25 12:14:
Acute pancreatitis with unknown etiology
Triglycerides normal. No alcohol use history in the last 5 to 6 years
Pending IgG4
IV fluids at 200 cc/h lactated Ringer's to reduce bacterial translocation
Continue antiemetics
Continue analgesics
Incentive spirometer and encourage ambulation
MRI/MRCP without acute findings
GI following
Original Note:
Today's Communication/Plan
-
Plan reviewed with attending
Continue IVF.
Continue clear diet. Emesis in am.
Control pain
Assessment / Plan
Assessment / Plan
Impression/plan
49yoM PMH idiopathic pancreatitis many years ago presenting with acute pancreatitis of unknown cause.
AFVSS. Triglycerides WNL, no stones found, no hx recent alcohol use. GI Following. MRCP negative for stones, masses, necrosis.
Acute recurrent pancreatitis. Second episode
Denies alcohol use. Normal triglycerides. Negative MRI.
Mildly elevated bilirubin at 1.4 with normal transaminases.
Imaging including CT scan of the abdomen pelvis with no evidence of cholelithiasis or choledocholithiasis.
IgG4 pending.
Continue aggressive fluid support with isotonic solution.
Monitor hematocrit and CRP.
Monitor volume status closely.
Continue clears
PPI.
Given severe pain, will increase hydromorphone to 2 mg every 3 hours as needed
transition to LR IVF
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
Patient reports occasionally gets swelling
Has had follow-up with Derm for biopsy and full lab work with rheumatology with no full answers other than possible venous insufficiency
#Seasonal allergies
Continue Symbicort, Lita, Flonase, albuterol as needed
#Insomnia
Patient uses occasional edible marijuana
DVT prophylaxis
SCDs
Diet trial clears
Full code
Anticipated Discharge: 24 - 48 hours
Subjective/Interval History
-
Date of Service: March 31, 2025
Pt reports slightly improved pain but continues to be 6-7/10 with pulses of 10/10 pain. Reports tolerating clears yesterday with a bout of emesis this morning at 6am.
Objective Data
-
Labs:
Laboratory Results
03/31/25
07:23
WBC 10.3
Hgb 12.9 L
Hct 36.6 L
Plt Count 145
Sodium 137
Potassium 3.9
Chloride 106
Carbon Dioxide 28
BUN 9
Creatinine 0.7
Glucose 123 H
Calcium 8.9
Total Bilirubin 1.5 H
AST 20
ALT 21
Alkaline Phosphatase 48
Vital Signs:
Vital Signs
Temp Pulse Resp BP Pulse Ox
98.2 F 89 14 143/75 95
03/31/25 07:15 03/31/25 08:05 03/31/25 08:05 03/31/25 07:15 03/31/25 09:59
I&O
03/30/25 03/31/25 04/01/25
06:59 06:59 06:59
Intake Total 4200 / 4200 620 / 620 2400 / 2400
Output Total 1440 / 1440 3225 / 3225
Balance 2760 / 2760 -2605 / -2605 2400 / 2400
Physical Exam
-
General: Well Developed, Well Nourished and Appears in Distress
HEENT: Normocephalic, Atraumatic, Moist Mucous Membranes and Thrush (possible)
Respiratory: Clear to Auscultation
Cardiac: Regular Rhythm and S1/S2
GI: Soft, Nondistended and Tender (epigastric tenderness, voluntary guarding improving)
Musculoskeletal: No Edema
Skin: Warm and Dry
Neuro: AO x 3, No Motor Deficits and Nonfocal/Grossly Intact
Psych: Calm
[2025-03-31] MEDS: LR IV (11:18)
[2025-03-31 11:34] VITALS: BMI 32.1
--- NOTE | 2025-03-31 15:19 | W.PN.GI.CBS2 ---
Today's Communication / Plan
-
Miralax
decrease lactated Ringer's to 150 mL/h
Ambulate
Incentive spirometry
Wean narcotics
Assessment / Plan
-
49 year old male with PMH of asthma, Chronic sinusitis, perirectal abscess (2016), prior episode of pancreatitis at the age of 32 (17 years ago)presents to the emergency room with abdominal pain. We are asked to evaluate for pancreatitis. Patient
with serological, CT findings and abdominal pain consistent with acute pancreatitis. Patient without gallstones, denies alcohol use for 5 years, normal triglyceride levels, no offending medications. Currently on IV fluids normal saline at 175 cc
an hour.
Assessment and plan
-second episode acute pancreatitis last episode was almost 17 years ago at that time he was drinking alcohol (but denies excessive use of alcohol ) but he has not had any alcohol for the past 5 to 6 years.
-His triglycerides level on admission was normal.
-ultrasound in October did not reveal any evidence of gallstones or ductal dilatation. CT also did not reveal any evidence of obvious stones or ductal dilatation. MRI with MRCP also neg for GS has pancreatitis no necrosis
-IgG4 level is currenty pending.
-Continue supportive care with IV fluids will decrease rate to 150 from 200, Zofran as needed, pain control but try to minimize use of narcotics can add Toradol as needed seems to have an ileus associated with the narcotics he has been having more
nausea vomiting
-On clear liquids if pain is improving advance to LFD, he wants to hold off on full liquids also
- add Miralax
-Follow-up with Dr. Lerner after DC
Subjective
Subjective
Date of Service: March 31, 2025
He has been ambulating, he still complains of pain but also had nausea and vomiting earlier today.
Objective
Data Reviewed
Laboratory Data:
Laboratory Results
03/31/25 07:23
03/31/25 07:23
Laboratory Results
Magnesium 1.8 mg/dl (1.6-2.3) 03/28/25 17:50
Total Bilirubin 1.5 mg/dl (0.2-1.3) H 03/31/25 07:23
AST 20 U/L (17-59) 03/31/25 07:23
ALT 21 U/L (0-50) 03/31/25 07:23
Alkaline Phosphatase 48 U/L (38-126) 03/31/25 07:23
Lipase 615 U/L (23-300) H 03/30/25 07:30
03/30/2025 MRI with MRCP
IMPRESSION:
Acute interstitial edematous pancreatitis.
No MRCP evidence for choledocholithiasis.
Vital Signs and I&O:
Vital Signs
Temp Pulse Resp BP Pulse Ox
98.2 F 89 14 143/75 95
03/31/25 07:15 03/31/25 08:05 03/31/25 08:05 03/31/25 07:15 03/31/25 09:59
I&O
03/30/25 03/31/25 04/01/25
06:59 06:59 06:59
Intake Total 4200 / 4200 620 / 620 2400 / 2400
Output Total 1440 / 1440 3225 / 3225
Balance 2760 / 2760 -2605 / -2605 2400 / 2400
Physical Exam
Physical Exam
Cardiology: Normal Sinus Rhythm
Pulmonary: Clear
GI: Soft, Non Distended and Tender (epigastric)
[2025-03-31 15:39] VITALS: BP 158/77
[2025-03-31] MEDS: MIRALAX 17 GRAMS PO (16:30)
[2025-03-31] MEDS: TORADOL 30 MG IV (16:30)
[2025-03-31] MEDS: SYMBICORT 80/4.5 MCG INHALER INH (19:42)
[2025-03-31] MEDS: SENOKOT 17.2 MG PO (20:05)
[2025-03-31] MEDS: REGLAN 10 MG IV (21:05)
[2025-03-31 23:00] VITALS: BP 144/83
[2025-03-31] MEDS: DILAUDID 1 MG IV (23:04)
[2025-04-01] MEDS: TORADOL 30 MG IV (00:47)
[2025-04-01] MEDS: LR 1000 IV (05:23)
[2025-04-01 07:00] VITALS: BP 148/79
[2025-04-01] MEDS: MIRALAX 17 GRAMS PO (07:48)
[2025-04-01] MEDS: NSS (PRESERVATIVE FREE) 10 ML IV (07:48)
[2025-04-01] MEDS: PROTONIX IV 40 MG IV (07:49)
[2025-04-01] MEDS: SYMBICORT 80/4.5 MCG INHALER 2 PUFF INH (07:54)
--- NOTE | 2025-04-01 08:31 | W.PN.HOSP.TC ---
Today's Communication/Plan
-
Plan reviewed with attending
Discharge today
Assessment / Plan
Assessment / Plan
Impression/plan
49yoM PMH idiopathic pancreatitis many years ago presenting with acute pancreatitis of unknown cause.
AFVSS. Triglycerides WNL, no stones found, no hx recent alcohol use, no scorpions, no GLP1 use. GI Following. MRCP negative for stones, masses, necrosis. Pain improved and controlled on toradol. Can go home after tolerating lunch.
We discussed possibility of recessive cystic fibrosis gene associated with 2 episodes of idiopathic pancreatitis and recurrent sinus infections. We discussed this can be done outpt, as there is no acute treatment.
Acute recurrent pancreatitis. Second episode
Denies alcohol use. Normal triglycerides. Negative MRI.
Mildly elevated bilirubin at 1.4 with normal transaminases.
Imaging including CT scan of the abdomen pelvis with no evidence of cholelithiasis or choledocholithiasis.
IgG4 pending.
Completed aggressive fluid support with isotonic solution.
Monitor hematocrit and CRP.
Monitor volume status closely.
Advance diet as tolerated.
PPI.
Given severe pain, will increase hydromorphone to 2 mg every 3 hours as needed
transition to LR IVF
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
Patient reports occasionally gets swelling
Has had follow-up with Derm for biopsy and full lab work with rheumatology with no full answers other than possible venous insufficiency
#Seasonal allergies
Continue Symbicort, Lita, Flonase, albuterol as needed
#Insomnia
Patient uses occasional edible marijuana
DVT prophylaxis
SCDs
Diet trial clears
Full code
Anticipated Discharge: Today
Subjective/Interval History
-
Date of Service: April 01, 2025
Pt reports tolerating full liquids. He reports resolution of pain, nausea, and vomiting since switching to toradol. He had 1 episode of breakthrough pain overnight with dilaudid, otherwise improving well.
We discussed the lack of known cause for his pancreatitis. He denied any recent scorpion exposure, GLP-1 use, or herbal supplements. No home medications associated with pancreatitis. He does report recurrent sinus infections. Unknown FH since he is
adopted.
Objective Data
-
Labs:
Laboratory Results
04/01/25
06:54
WBC Pending
Hgb Pending
Hct Pending
Plt Count Pending
Sodium Pending
Potassium Pending
Chloride Pending
Carbon Dioxide Pending
BUN Pending
Creatinine Pending
Glucose Pending
Calcium Pending
Total Bilirubin Pending
AST Pending
ALT Pending
Alkaline Phosphatase Pending
Vital Signs:
Vital Signs
Temp Pulse Resp BP Pulse Ox
98.1 F 80 14 148/79 95
04/01/25 07:00 04/01/25 08:15 04/01/25 08:15 04/01/25 07:00 04/01/25 08:15
I&O
03/31/25 04/01/25 04/02/25
06:59 06:59 06:59
Intake Total 620 / 620 5910 / 5910
Output Total 3225 / 3225 4675 / 4675
Balance -2605 / -2605 1235 / 1235
Review of Systems
-
History Source: Patient
All other systems: Reviewed and negative
Physical Exam
-
General: Well Developed, Well Nourished, No Apparent Distress and Comfortable
HEENT: Normocephalic, Atraumatic and Moist Mucous Membranes; Negative Thrush
Respiratory: Clear to Auscultation and Non Labored Respirations
Cardiac: Regular Rhythm and S1/S2
GI: Soft, Nontender (no guarding or rebound) and Nondistended
Musculoskeletal: No Edema
Skin: Warm and Dry
Neuro: AO x 3, No Motor Deficits and Nonfocal/Grossly Intact
Psych: Calm
--- NOTE | 2025-04-01 09:23 | W.PN.GI.CBS2 ---
Documented by User: Georgette Esquivel MD, Resident 04/01/25 11:13
Today's Communication / Plan
-
Advanced to LFD
Ambulate
Incentive spirometry
Wean narcotics
Assessment / Plan
-
49 year old male with PMH of asthma, Chronic sinusitis, perirectal abscess (2015), prior episode of pancreatitis at the age of 32 (17 years ago)presents to the emergency room with abdominal pain. We are asked to evaluate for pancreatitis. Patient
with serological, CT findings and abdominal pain consistent with acute pancreatitis. Patient without gallstones, denies alcohol use for 5 years, normal triglyceride levels, no offending medications. Currently on IV fluids LR at 150 cc an hour.
Assessment and plan
-second episode acute pancreatitis last episode was almost 17 years ago at that time he was drinking alcohol (but denies excessive use of alcohol ) but he has not had any alcohol for the past 5 to 6 years.
-His triglycerides level on admission was normal.
-ultrasound in October did not reveal any evidence of gallstones or ductal dilatation. CT also did not reveal any evidence of obvious stones or ductal dilatation. MRI with MRCP also neg for GS has pancreatitis no necrosis
-IgG4 level is currently pending.
-Continue supportive care with IV fluids will decrease rate to 150 from 200, Zofran as needed, pain control but try to minimize use of narcotics can add Toradol as needed seems to have an ileus associated with the narcotics he has been having more
nausea vomiting
- advance to LFD, he wants to hold off on full liquids also
- add Miralax
-Follow-up with Dr. Lerner after DC
Subjective
Subjective
Patient was seen at bedside. He reports no abdominal pain, no fever, no shortness of breath no chest pain. Had a bowel movement this morning that was nonbloody. He tolerated liquids well and has required no increase in pain medications. Date of
Service: April 01, 2025
Objective
Data Reviewed
Laboratory Data:
Laboratory Results
Magnesium 1.8 mg/dl (1.6-2.3) 03/28/25 17:50
Total Bilirubin 1.5 mg/dl (0.2-1.3) H 03/31/25 07:23
AST 20 U/L (17-59) 03/31/25 07:23
ALT 21 U/L (0-50) 03/31/25 07:23
Alkaline Phosphatase 48 U/L (38-126) 03/31/25 07:23
Lipase 615 U/L (23-300) H 03/30/25 07:30
Vital Signs and I&O:
Vital Signs
Temp Pulse Resp BP Pulse Ox
98.1 F 80 14 148/79 95
04/01/25 07:00 04/01/25 08:15 04/01/25 08:15 04/01/25 07:00 04/01/25 08:15
I&O
03/31/25 04/01/25 04/02/25
06:59 06:59 06:59
Intake Total 620 / 620 5910 / 5910 720 / 720
Output Total 3225 / 3225 4675 / 4675
Balance -2605 / -2605 1235 / 1235 720 / 720
Physical Exam
Physical Exam
HEENT: Anicteric
Cardiology: Normal Sinus Rhythm
Pulmonary: Clear
GI: Soft, Non Distended, Non Tender and Normal Bowel Sounds
Extremities: No Edema

Documented by User: Alana Fernandes MD 04/01/25 13:34
Assessment / Plan
-
49 year old male with PMH of asthma, Chronic sinusitis, perirectal abscess (2016), prior episode of pancreatitis at the age of 32 (17 years ago)presents to the emergency room with abdominal pain. We are asked to evaluate for pancreatitis. Patient
with serological, CT findings and abdominal pain consistent with acute pancreatitis. Patient without gallstones, denies alcohol use for 5 years, normal triglyceride levels, no offending medications. Currently on IV fluids LR at 150 cc an hour.
Assessment and plan
-second episode acute pancreatitis last episode was almost 17 years ago at that time he was drinking alcohol (but denies excessive use of alcohol ) but he has not had any alcohol for the past 5 to 6 years.
-His triglycerides level on admission was normal.
-ultrasound in October did not reveal any evidence of gallstones or ductal dilatation. CT also did not reveal any evidence of obvious stones or ductal dilatation. MRI with MRCP also neg for GS has pancreatitis no necrosis
-IgG4 level is currently pending.
-Symptoms markedly improved and tolerating diet today
-He also had a bowel movement with the bowel regimen
-Continue MiraLAX as needed at home
-Okay to DC home
-Follow-up with Dr. Lerner after DC
[2025-04-01 09:53] LABS: Hematocrit 37.3 % (39.0-52.0); Hemoglobin 13.7 g/dL (13.0-18.0); Mean Corp Hgb Conc. 36.7 g/dL (33.0-37.0); Mean Corpuscular Volume 84.2 fL (80.0-94.0); Platelet Count 162 10^3/uL (130-400); Red Cell Dist. Width 12.1 % (11.5-14.5)
[2025-04-01 10:28] LABS: ALT (SGPT) 21 U/L (0-50); AST (SGOT) 19 U/L (17-59); Albumin 3.9 g/dl (3.5-5.0); Alkaline Phosphatase 57 U/L (38-126); Blood Urea Nitrogen 8 mg/dl (9-20); Calcium 9.2 mg/dl (8.4-10.2); Carbon Dioxide 23 mmol/L (22-30); Chloride 105 mmol/L (98-107); Estimated Creatinine Clearance > 125 ml/min; Glucose 167 mg/dl (70-99); Potassium 3.2 mmol/L (3.5-5.1); Sodium 136 mmol/L (135-145); Total Protein 6.8 g/dl (6.3-8.2); eGFR > 60.00
[2025-04-01] MEDS: KCL 40 MEQ PO (11:54)
--- NOTE | 2025-04-01 13:00 | CM ---
MD entered order for discharge.
Spoke with patient in room .He said he was ready for discharge.
He said his [employer] will drive him home.
Declined need for VN .
PLAN Home no needs
[2025-04-01 13:30] VITALS: BP 154/87
--- NOTE | 2025-04-01 13:33 | W.DCSUMMARY ---
Documented by User: Lucy Fajardo MD, Resident 04/01/25 13:57
Discharge Summary
Discharge Data
Date of Admission: 03/28/25
Date of Discharge: 04/01/25
-
Pending Results: Yes
Additional Pending Results:
IgG4
Hospital Course
49-year-old male complaining of abdominal pain started 03/28 morning after waking up reports pain is in the epigastrium and radiates toward his mid abdomen associated with vomiting. He has past medical history of idiopathic pancreatitis 17 years ago.
He denies alcohol use, fever, chills, chest pain, palpitations, cough, diarrhea, urinary symptoms. He has past medical history of asthma, idiopathic pancreatitis, erythema nodosum bilateral legs with rash. Second episode.
AFVSS. Mild leukocytosis 13 downtrended WNL as inflammation resolved. no stones found, no hx recent alcohol use. Mildly elevated bilirubin at 1.4 with normal transaminases. Lipase >4000 upon presentation. Diffuse abdominal pain. CT demonstrated
pancreatis inflammation but no signs of stones or masses. MRI demonstrated pancreatitis, also w/o signs of masses or further abnormalities. GI Following. MRCP negative for stones, masses, necrosis. No scorpion bites. Outpt workup for erythema
nodosum diagnosis demonstrated negative professor of journalism work up, less likely autoimmune in origin. IgG4 antibodies sent with results pending. Pt started on PPI, antiemetics, LR 200/hr, pain regimen.
NPO until 03/30. Started on clears 03/30, Full liquids 03/31, with low fat diet tolerated well 04/01.
Pain initially addressed with PRN dilaudid, IVF. Pain improved each day but continued to persist fairly severely through 03/31, concerning for opioid exacerbation of pancreatitis. Pain regimen transitioned to toradol with breakthrough PRN dilaudid
03/31. By 04/01, pain resolved. Pt reported significant improvement with no pain to palpation.
Has clinically improved and tolerating LRD without symptoms. Encourage cessation from alcohol. Will need to follow-up IgG4 antibodies as OP.
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
Patient reports occasionally gets swelling
Has had follow-up with Derm for biopsy and full lab work with rheumatology with no full answers other than possible venous insufficiency
#Seasonal allergies
Continue Symbicort, Lita, Flonase, albuterol as needed
#Insomnia
Patient uses occasional edible marijuana
Discharge Plan
-
Patient Disposition: Home (Routine Discharge)
Discharge Diagnosis/Procedures: acute idiopathic pancreatitis
Condition: Good
Diet: Low Fat
Activity: No restrictions and As tolerated
Driving Restrictions: As prior to admission
Bathing Restrictions: None
Others Tests: Discuss with primary care provider cystic fibrosis work up. Hx recurrent sinus infections, unknown FH, 2 episodes of idiopathic pancreatitis.
Referrals:
Moe Bates DO [Family Provider, [facility]]
Additional Discharge Medication Instructions: Alternate between tylenol (acetaminophen) and ibuprofen (or preferred NSAID). Can take up to 3000mg tylenol in 24hrs.
Prescriptions:
Continued
therapeutic multivitamin Tablet
1 tab PO DAILY
fexofenadine 180 mg Tablet
180 mg PO DAILY
albuterol sulfate 90 mcg/actuation Hfa Aerosol Inhaler
2 puff INHALATION R Q6HPRN PRN (Reason: sob)
fluticasone propionate 50 mcg/actuation [place],Suspension
1 spray INTRANASAL DAILY
sodium chloride 0.65 % Aerosol,[place]
1 spray INTRANASAL DAILY
budesonide-formoterol [Symbicort] 80-4.5 mcg/actuation Hfa Aerosol Inhaler
2 inh INHALATION R BID
Medical Marijuana
1 gummy PO HSPRN PRN (Reason: sleep)
Discharge Orders:
Discharge Patient (As Directed); Ordered 04/01/25
Ordered By: Lucy Fajardo
Discharge Date and Time
Print Language: SWEDISH

Documented by User: Akil Johnson DO 04/01/25 14:05
Discharge Summary
Discharge Data
Date of Admission: 03/28/25
Date of Discharge: 04/01/25
Total time spent discharging patient (in min): 35
Hospital Course
#Idiopathic Acute Pancreatitis
49-year-old male complaining of abdominal pain started 03/28 morning after waking up reports pain is in the epigastrium and radiates toward his mid abdomen associated with vomiting. He has past medical history of idiopathic pancreatitis 17 years ago.
He denies alcohol use, fever, chills, chest pain, palpitations, cough, diarrhea, urinary symptoms. He has past medical history of asthma, idiopathic pancreatitis, erythema nodosum bilateral legs with rash. Second episode.
AFVSS. Mild leukocytosis 13 downtrended WNL as inflammation resolved. no stones found, no hx recent alcohol use. Mildly elevated bilirubin at 1.4 with normal transaminases. Lipase >4000 upon presentation. Diffuse abdominal pain. CT demonstrated
pancreatis inflammation but no signs of stones or masses. MRI demonstrated pancreatitis, also w/o signs of masses or further abnormalities. GI Following. MRCP negative for stones, masses, necrosis. No scorpion bites. Outpt workup for erythema
nodosum diagnosis demonstrated negative professor of [employer] work up, less likely autoimmune in origin. IgG4 antibodies sent with results pending. Pt started on PPI, antiemetics, LR 200/hr, pain regimen.
NPO until 03/30. Started on clears 03/30, Full liquids 03/31, with low fat diet tolerated well 04/01.
Pain initially addressed with PRN dilaudid, IVF. Pain improved each day but continued to persist fairly severely through 03/31, concerning for opioid exacerbation of pancreatitis. Pain regimen transitioned to toradol with breakthrough PRN dilaudid
03/31. By 04/01, pain resolved. Pt reported significant improvement with no pain to palpation.
Has clinically improved and tolerating LRD without symptoms. Encourage cessation from alcohol. Will need to follow-up IgG4 antibodies as OP.
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
Patient reports occasionally gets swelling
Has had follow-up with Derm for biopsy and full lab work with rheumatology with no full answers other than possible venous insufficiency
#Seasonal allergies
Continue Symbicort, Lita, Flonase, albuterol as needed
#Insomnia
Patient uses occasional edible marijuana
Discharge Plan
-
Patient Disposition: Home (Routine Discharge)
Discharge Diagnosis/Procedures: acute idiopathic pancreatitis
Condition: Good
Diet: Low Fat
Activity: No restrictions and As tolerated
Driving Restrictions: As prior to admission
Bathing Restrictions: None
Others Tests: Discuss with primary care provider cystic fibrosis work up. Hx recurrent sinus infections, unknown FH, 2 episodes of idiopathic pancreatitis.
Referrals:
Moe Bates DO [Family Provider, [facility]]
Additional Discharge Medication Instructions: Alternate between tylenol (acetaminophen) and ibuprofen (or preferred NSAID). Can take up to 3000mg tylenol in 24hrs.
Prescriptions:
Continued
therapeutic multivitamin Tablet
1 tab PO DAILY
fexofenadine 180 mg Tablet
180 mg PO DAILY
albuterol sulfate 90 mcg/actuation Hfa Aerosol Inhaler
2 puff INHALATION R Q6HPRN PRN (Reason: sob)
fluticasone propionate 50 mcg/actuation [place],Suspension
1 spray INTRANASAL DAILY
sodium chloride 0.65 % Aerosol,[place]
1 spray INTRANASAL DAILY
budesonide-formoterol [Symbicort] 80-4.5 mcg/actuation Hfa Aerosol Inhaler
2 inh INHALATION R BID
Medical Marijuana
1 gummy PO HSPRN PRN (Reason: sleep)
Discharge Orders:
Discharge Patient (As Directed); Ordered 04/01/25
Ordered By: Lucy Fajardo
Discharge Date and Time
Print Language: SWEDISH
[2025-04-01] MEDS: TYLENOL 650 MG PO (13:58)
== END 2025-04-01 15:44 | disposition home or self-care (01) | DRG 440 ==
LOC: 4 EAST ACU 20:55
PROVIDERS: Clinical Nurse Specialist Family Health; Nurse Practitioner; ADMITTING PHYSICIAN Student in an Organized Health Care Education/Training Program; ATTENDING PHYSICIAN Internal Medicine; CONSULT PHYSICIAN Internal Medicine Gastroenterology; EMERGENCY PHYSICIAN Emergency Medicine; FAMILY PHYSICIAN Family Medicine
DX: K85.00 Idiopathic acute pancreatitis without necrosis or infection (principal); E78.5 Hyperlipidemia, unspecified; G47.00 Insomnia, unspecified; J32.9 Chronic sinusitis, unspecified; J45.909 Unspecified asthma, uncomplicated; I87.2 Venous insufficiency (chronic) (peripheral); F17.290 Nicotine dependence, other tobacco product, uncomplicated; L52 Erythema nodosum; Z79.51 Long term (current) use of inhaled steroids
CPT/HCPCS: 74177; 74183; 80053; 82248; 82787; 83690; 83735; 84478; 85025; 85027; 86140; 94640; 96361; 96374; 96375; 99284; A9575; Q9967

== ENCOUNTER → 2025-06-22 08:36 | Outpatient (REF) | payer OTHER, SELFPAY | LOC: MRI 08:36 | PROVIDERS: ATTENDING PHYSICIAN Internal Medicine Gastroenterology; FAMILY PHYSICIAN Internal Medicine | DX: K85.90 Acute pancreatitis without necrosis or infection, unspecified (principal) | CPT/HCPCS: 74183; A9575 ==